=== PATIENT | male | born 1990 | race Two or more races ===

== ENCOUNTER 2019-03-16 02:22 | Emergency (ER) | payer SELFPAY ==
[~2019-03-16] VITALS: Ht 182.9 cm; Wt 86.2 kg
[2019-03-16 02:29] VITALS: Ht 182.9 cm; Wt 86.2 kg
[2019-03-16 05:12] VITALS: BP 106/66
== END 2019-03-16 05:12 | disposition home or self-care (01) ==
LOC: ED 02:22
DX: F10.129 Alcohol abuse with intoxication, unspecified (principal); R11.2 Nausea with vomiting, unspecified
CPT/HCPCS: 82962; Q0162